=== PATIENT | male | born 1980 | race Two or more races ===

== ENCOUNTER → 2017-07-21 | Outpatient (CLI) | payer BC | END | disposition home or self-care (01) | LOC: ECHO 09:23 | DX: R94.31 Abnormal electrocardiogram [ECG] [EKG] (principal); R06.02 Shortness of breath; R06.00 Dyspnea, unspecified | CPT/HCPCS: 93306 ==

== ENCOUNTER 2021-04-03 07:56 | Day surgery (SDC) | payer MEDICARE ==
[~2021-04-03] VITALS: Ht 162.6 cm; Wt 100.0 kg
[~2021-04-03 07:56] MED LIST: ALBU2.5V8 INH; HYDR5SYR PO; HYDROmorphone 2 MG/ML VIAL IVP PRN; IV RINGERS,LACTATED 1000ML 1,000 ML IV SCH; MORPHINE SULFATE 2 MG/ML INJ. IVP PRN; PROCHLORPERAZINE 10 MG/2 ML VIAL. IVP PRN; fentaNYL PF VIAL 100 MCG/2 ML VIAL IVP PRN
[2021-04-03] MEDS ORDERED: PROPOFOL 10 MG/ML (20ML) VIAL. IV ONE (08:21)
[2021-04-03] MEDS ORDERED: DEXAMETHASONE SOD PHOS 4 MG/ML VIAL ONE (08:21)
[2021-04-03] MEDS ORDERED: LIDOCAINE 2% PF 5 ML VIAL. ONE (08:21)
[2021-04-03] MEDS ORDERED: ONDANSETRON PF 4 MG/2 ML VIAL. ONE (08:21)
[2021-04-03 08:25] VITALS: BP 123/78
[2021-04-03] MEDS ORDERED: MIDAZOLAM HCL/PF 2 MG/2 ML VIAL. ONE (08:46)
[2021-04-03] MEDS ORDERED: BUPIVACAINE MPF 0.25% 30 ML VIAL. ONE (08:50)
[2021-04-03] MEDS ORDERED: fentaNYL PF VIAL 100 MCG/2 ML VIAL ONE (09:28)
--- NOTE | 2021-04-03 09:49 | PDOC4 ---
OPERATIVE NOTE: DATE OF PROCEDURE: April 03, 2021 PROCEDURE: Left carpal tunnel release. [id number] PREOPERATIVE DIAGNOSIS: Left carpal tunnel syndrome. POSTOPERATIVE DIAGNOSIS: Same SURGEON: Emmy Neal DO APPLICATIONS TESTER: None EBL: <50cc SPECIMEN: None COMPLICATIONS: None. ANESTHESIA: TIVA with local ( 5cc 0.25% marcaine) DISPOSITION: To PACU, stable. DESCRIPTION OF PROCEDURE: The patient was seen in the preoperative holding area. Site was marked. Consent was verified. Patient received preoperative antibiotics and was taken back to the operating room. The department of anesthesia administered general anesthetic and maintained control of the airway. A tourniquet was placed high on the operative arm. Time out was observed. Sterile prep and drape was performed of the operative extremity. An Esmarch was used to exsanguinate the limb. A to urniquet was inflated to 250 mmHg. At this point, a 4 cm incision was made over the carpal tunnel in line with the radial side of the ring finger, extending distally from the palmar flexion crease. Soft tissue dissection was carried out bluntly through the subcutaneous fat. The palmar fascia was identified and split sharply in line with the incision. The transverse carpal ligament was identified and divided sharply in line with the incision. Proximal and distal most extents of the transverse carpal ligament were split under direct visualization with Littler scissors. The carpal canal was inspected. There were no masses. The nerve was intact. Copious irrigation was run through the wound, and it was padded dry. The tourniquet was deflated, and hemostasis was obtained with pressure and electrocautery as needed. The skin was then closed with interrupted nylon. A large bulky nonadherent dressing and volar splint were applied. Anesthesia was reversed, and the patient was transferred to postop in apparent stable condition. DISPOSITION: The patient will be discharged to home and will follow up as an outpatient. PROGNOSIS: fair EMMY NEAL DO Apr 03, 2021 9:49 am
[2021-04-03] MEDS ORDERED: HYDR-2761 PO (09:52)
[2021-04-03] MEDS ORDERED: HYDROcodone/APAP 5/325MG 1 TAB TABLET PO ONE (10:15)
[2021-04-03 10:19] VITALS: BP 106/67
== END 2021-04-03 10:45 | disposition home or self-care (01) ==
LOC: SURG 07:56
PROVIDERS: ATTEND Orthopaedic Surgery
DX: G56.02 Carpal tunnel syndrome, left upper limb (principal); E11.9 Type 2 diabetes mellitus without complications; F17.210 Nicotine dependence, cigarettes, uncomplicated; Z79.899 Other long term (current) drug therapy; Z98.890 Other specified postprocedural states; Z88.1 Allergy status to other antibiotic agents
CPT/HCPCS: 64721; A4930; J0690; J1100; J2250; J2405; J2704; J3010; J3490; A4657; A6452